=== PATIENT | female | born 1975 | race Caucasian/White ===

== ENCOUNTER 2018-12-17 08:06 | Observation (INO) | payer BC ==
[~2018-12-17] VITALS: Ht 162.6 cm; Wt 92.5 kg
[~2018-12-17 08:06] MED LIST: BUPIVACAINE/PF-EPI 0.5% 1:200K ONE
[2018-12-17] MEDS ORDERED: LACTATED RINGERS 1,000 ML IV SCH (08:44)
[2018-12-17] MEDS ORDERED: LEVO137T3 PO (08:46)
[2018-12-17] MEDS ORDERED: OMEP20TA62 PO (08:46)
[2018-12-17] MEDS ORDERED: CITA40TA12 PO (08:46)
[2018-12-17 08:54] VITALS: BP 141/93
[2018-12-17 08:56] LABS: HCG UR SG 1.017 (1.003-1.030)
[2018-12-17] MEDS ORDERED: LIDOCAINE-MPF 1%, 2ML INFIL ONE (09:00)
[2018-12-17] MEDS ORDERED: MIDAZOLAM 1 MG/ML, 2ML ONE (09:16)
[2018-12-17] MEDS ORDERED: FENTANYL PF 250 MCG/5ML ONE (09:16)
[2018-12-17] MEDS ORDERED: ROCURONIUM 10 MG/ML,10ML ONE (10:34)
[2018-12-17] MEDS ORDERED: DEXAMETHASONE 4 MG/ML, 1ML ONE (10:34)
[2018-12-17] MEDS ORDERED: CEFAZOLIN 1,000 MG ONE (10:34)
[2018-12-17] MEDS ORDERED: SUCCINYLCHOLINE 20 MG/ML, 10ML ONE (10:34)
[2018-12-17] MEDS ORDERED: ONDANSETRON 2MG/ML, 2ML ONE (10:34)
[2018-12-17] MEDS ORDERED: PROPOFOL 50 ML ONE ×2 (10:43→11:16)
[2018-12-17] MEDS ORDERED: PROMETHAZINE 25 MG/ML, 1ML IV PRN (11:00)
[2018-12-17] MEDS ORDERED: PROMETHAZINE 25 MG SUPP PR PRN (11:00)
[2018-12-17] MEDS ORDERED: DIPHENHYDRAMINE 50 MG/ML, 1ML IM PRN (11:00)
[2018-12-17] MEDS ORDERED: METOPROLOL 1 MG/ML, 5ML IV PRN (11:00)
[2018-12-17] MEDS ORDERED: HYDROmorphone 2 MG/ML, 1ML IVPush PRN (11:00)
[2018-12-17] MEDS ORDERED: PROMETHAZINE 12.5 MG SUPP PR PRN ×2 (11:00→12:30)
[2018-12-17] MEDS ORDERED: MIDAZOLAM 1 MG/ML, 2ML IV PRN (11:00)
[2018-12-17] MEDS ORDERED: EPHEDRINE 50 MG/ML, 1ML IVPush PRN (11:00)
[2018-12-17] MEDS ORDERED: ONDANSETRON ODT 8 MG PO PRN (11:00)
[2018-12-17] MEDS ORDERED: OXYcodone 5 MG/5 ML ORAL.SOL UDC PO PRN (11:00)
[2018-12-17] MEDS ORDERED: MEPERIDINE/PF 25MG/0.5ML IVPush PRN (11:00)
[2018-12-17] MEDS ORDERED: hydrALAzine 20 MG/ML, 1ML IV PRN ×2 (11:00→12:30)
[2018-12-17] MEDS ORDERED: ONDANSETRON 2MG/ML, 2ML IV PRN (11:00)
[2018-12-17] MEDS ORDERED: DIAZEPAM 5 MG/ML, 2ML IVPush PRN (11:00)
[2018-12-17] MEDS ORDERED: FENTANYL PF 100 MCG/2ML ONE ×2 (11:12→12:20)
[2018-12-17] MEDS ORDERED: METOPROLOL 1 MG/ML, 5ML ONE (11:17)
[2018-12-17] MEDS ORDERED: KETOROLAC 30 MG/1 ML ONE (12:21)
[2018-12-17] MEDS ORDERED: OXYcodone 5 MG/5 ML ORAL.SOL UDC ONE (12:21)
[2018-12-17] MEDS ORDERED: DIPHENHYDRAMINE 50 MG/ML, 1ML IV PRN (12:30)
[2018-12-17] MEDS ORDERED: PROMETHAZINE 25 MG/ML, 1ML IM PRN (12:30)
[2018-12-17] MEDS: FENTANYL PF 100 MCG/2ML IV PRN ×3 (12:30→12:48)
[2018-12-17] MEDS ORDERED: LORazepam 2 MG/ML, 1ML IV PRN (12:30)
[2018-12-17] MEDS ORDERED: ONDANSETRON 2MG/ML, 2ML IVPush PRN (12:30)
[2018-12-17] MEDS ORDERED: morphine SULFATE 10 MG/ML, 1ML IV PRN (12:30)
[2018-12-17] MEDS ORDERED: ENALAPRILAT 1.25 MG/ML, 2ML IV PRN (12:30)
[2018-12-17] MEDS: PLEASE ENTER HEIGHT AND WEIGHT MC SCH ×2 (13:26→13:27)
[2018-12-17] MEDS: FAMOTIDINE 20 MG/2 ML IV SCH (13:42)
[2018-12-17] MEDS: HYDROcodone/APAP 7.5-325MG/15ML UDC PO PRN ×2 (16:15→21:02)
[2018-12-17] MEDS ORDERED: KETOROLAC 30 MG/1 ML IVPush PRN (18:00)
[2018-12-17] MEDS: LACTATED RINGERS 1,000 ML IV SCH (19:30)
[2018-12-17 19:32] VITALS: BP 146/92
[2018-12-18 00:04] VITALS: BP 132/88
[2018-12-18] MEDS: FAMOTIDINE 20 MG/2 ML IV SCH (02:11)
[2018-12-18] MEDS: LACTATED RINGERS 1,000 ML IV SCH ×2 (03:37→07:42)
[2018-12-18 03:39] VITALS: BP 122/87
[2018-12-18] MEDS: HYDROcodone/APAP 7.5-325MG/15ML UDC PO PRN (06:53)
[2018-12-18 07:13] VITALS: BP 136/89
[2018-12-18] MEDS ORDERED: LEVOTHYROXINE 137 MCG TABLET PO SCH (09:00)
[2018-12-18] MEDS ORDERED: ENOXAPARIN 40 MG/0.4 ML SQ SCH (09:00)
[2018-12-18 10:32] VITALS: BP 142/85
[2018-12-18] MEDS ORDERED: HYDR-2443 PO (11:39)
== END 2018-12-18 12:05 | disposition home or self-care (01) ==
LOC: OUT 08:06 → ORIP 12:03 → 4NOR 13:16 → DCLOUNGE 12-18 11:43
PROVIDERS: ADMIT Thoracic Surgery (Cardiothoracic Vascular Surgery); ATTEND Thoracic Surgery (Cardiothoracic Vascular Surgery)
DX: K44.9 Diaphragmatic hernia without obstruction or gangrene (principal); E03.9 Hypothyroidism, unspecified; F32.9 Major depressive disorder, single episode, unspecified; R11.10 Vomiting, unspecified; K21.9 Gastro-esophageal reflux disease without esophagitis; Z87.891 Personal history of nicotine dependence
CPT/HCPCS: 43281; 81025; 96361; 96372; 96374; 96375; 96376; G0378; J0330; J0360; J0690; J1100; J1650; J1885; J2250; J2405; J2704; J3010; J3490; J7120; Q4116